=== PATIENT | female | born 1935 | race Caucasian/White ===

== ENCOUNTER 2018-02-28 11:43 | Outpatient (CLI) ==
--- NOTE | 2018-02-28 13:25 | CT ---
EXAM: CT of the chest without contrast History: Chest wall pain and trauma. Technique: Multiplanar CT images through the thorax were obtained without the administration of IV c ontrast Findings: Heart size is normal. Aortic valve replacement. No thoracic aortic aneurysm. No pericar dial effusion. No axillary lymphadenopathy. No mediastinal lymphadenopathy. Evaluation for hilar l ymph nodes is limited due to lack of contrast administration but there is no bulky adenopathy. 1.4 c m left thyroid nodule with calcification. No consolidation. No pleural fluid and no pneumothorax. No suspicious lung masses or lung nodules. Within the visualized upper abdomen, small to moderate hiatal hernia containing fluid. Fluid is seen within the stomach. Small bilateral renal cysts. Sternotomy wires. No acute osseous abnormalities. There is subcutaneous edema of the posterior left back near the flank. Impression: 1. No acute intrathoracic process. 2. Hiatal hernia containing fluid. 3. Stomach is distended with fluid. 4. Subcutaneous edema of the left posterior back near the flank. Correlate for area of trauma. 5. No rib fractures
--- NOTE | 2018-02-28 13:27 | CT ---
EXAM: CT of the head without contrast History: Head trauma and headache. Technique: Multiplanar CT images through the head were obtained without the administration of IV con trast Findings: Mild mucosal thickening of the right maxillary sinus. No air-fluid levels are seen within the sinuses. Mastoid air cells are clear in general. No acute calvarial abnormalities. Intracranially the ventricular and cisternal spaces are normal in size, shape and configuration for a patient of this age. No dominant mass or midline shift. No hydrocephalous. No acute intracranial hemorrhage or abnormal extraaxial fluid collections. Periventricular and subcortical white matter hyp odensities. Impression: 1. No acute intracranial hemorrhage. 2. Nonspecific periventricular and subcortical white matter hypodensities most likely indicate chron ic small vessel ischemic disease. 3. Mild right maxillary sinus disease
== END 2018-02-28 11:44 | disposition home or self-care (01) ==
LOC: RAD 11:43
PROVIDERS: ATTEND Family Medicine
DX: R07.89 Other chest pain (principal); S20.212A Contusion of left front wall of thorax, initial encounter; G44.319 Acute post-traumatic headache, not intractable; S00.93XA Contusion of unspecified part of head, initial encounter; W19.XXXA Unspecified fall, initial encounter